=== PATIENT | female | born 1965 | race Caucasian/White ===

== ENCOUNTER → 2023-03-07 | Outpatient (CLI) | payer BC ==
[~2023-03-07] MED LIST: ESTRADIOL0.05 MG/24 TD; JARDIANCE25 MG PO; OZEMPIC1 MG/0.71 SQ; TOPAMAX100 MG PO; ZOFRAN ODT4 MG PO
[2023-03-07 16:12] LABS: URINE WBC 0 /hpf (0-3)
[2023-03-07 16:32] LABS: EOS # 0.14 K/mm3 (0.04-0.40); EOS % 1.2 % (1.0-5.0); HEMATOCRIT 40.4 % (37.0-47.0); HEMOGLOBIN 13.1 g/dL (12.5-16.0); LYMPH# 2.21 K/mm3 (1.50-4.00); MEAN CELL VOLUME 80 fl (78-100); MEAN CORPUSCULAR HEMOGLOBIN 26 pg (27-31); MEAN CORPUSCULAR HGB CONC 32 g/dL (33-37); MEAN PLATELET VOLUME 10.1 fl (7.4-10.4); MONO # 1.12 K/mm3 (0.20-0.80); NEU # 8.36 K/mm3 (1.40-6.50); PLATELET COUNT 208 K/mm3 (130-400); RED BLOOD COUNT 5.08 M/mm3 (4.10-5.30); RED CELL DISTRIBUTION WIDTH 13.4 % (11.5-14.5); WHITE BLOOD COUNT 11.9 K/mm3 (4.8-10.8)
[2023-03-07 16:54] LABS: ALBUMIN 4.1 g/dL (3.5-5.0)
[2023-03-07 16:55] LABS: CALCIUM 9.8 mg/dL (8.3-10.5)
[2023-03-07 16:57] LABS: TOTAL PROTEIN 7.5 g/dL (6.4-8.3)
[2023-03-07 16:59] LABS: TOTAL BILIRUBIN 0.5 mg/dL (0.2-1.2)
[2023-03-07 17:05] LABS: URINE APPEARANCE HAZY; URINE BILIRUBIN NEGATIVE (NEGATIVE); URINE BLOOD NEGATIVE (NEGATIVE); URINE COLOR YELLOW; URINE KETONE 2+ (NEGATIVE); URINE LEUKOCYTE ESTERASE NEGATIVE (NEGATIVE); URINE NITRATE NEGATIVE (NEGATIVE); URINE PROTEIN(semi-quant) NEGATIVE (NEGATIVE); URINE UROBILINOGEN NORMAL (NORMAL)
[2023-03-07 18:06] LABS: ERYTHROCYTE SEDIMENTATION RATE 39 mm/hr (0-30)
== END ==
LOC: LAB 16:03
PROVIDERS: Nurse Practitioner Family
DX: E11.9 Type 2 diabetes mellitus without complications (principal); R50.9 Fever, unspecified

== ENCOUNTER → 2023-11-05 | Outpatient (CLI) | payer BC | LOC: LAB 10:23 | DX: L02.91 Cutaneous abscess, unspecified (principal) ==